=== PATIENT | female | born 1975 | race Caucasian/White ===

== ENCOUNTER 2023-04-28 08:07 | Observation (INO) | payer BC, SELFPAY ==
[2023-04-28] VITALS (7 sets, daily range): BP systolic 119–164; BP diastolic 62–99; PULSE 73–85; RESP 16–20; TEMP 35.9–37.1; O2SAT 92–100; BMI 45.9
--- NOTE | ~2023-04-28 | CT_ITS ---
EXAMINATION: CT abdomen pelvis w con INDICATION: Abdominal pain and nausea TECHNIQUE: Computed tomographic images of the abdomen and pelvis were obtained after the administrati on of 100 cc of Omnipaque 350 intravenous contrast. The dose-length product (DLP) was 1652.70 mGy-cm. Automated exposure control and iterative reconstruction technique were employed. COMPARISON: None available FINDINGS: Minimal dependent atelectasis is present in the lung bases. The heart size is normal. There is wall thickening of the gallbladder with pericholecystic inflammatory change. The liver, spleen, p ancreas, and adrenal glands are normal. No pathologically enlarged abdominal or pelvic lymph nodes ar e identified. No free intraperitoneal gas or evidence of bowel obstruction. There is an umbilical her amado containing fat. There is mild lumbar spondylosis. IMPRESSION: 1. CT findings consistent with acute cholecystitis. Reviewed, dictated and finalized at location F.
--- NOTE | ~2023-04-28 | US_ITS ---
EXAMINATION: US right upper quadrant DATE: 04/28/2023 10:22 INDICATION: Right upper quadrant abdominal pain TECHNIQUE: Multiple grayscale and Doppler ultrasound images of the abdomen were obtained. COMPARISON: None FINDINGS: The pancreatic head and body are normal in appearance including a normal caliber 2 mm main pancreatic duct at the pancreatic body. The pancreatic tail is not visualized. Visualized proximal to mid infe rior vena cava is normal. Liver has normal contour, with a smooth surface. There is increased parench ymal echogenicity and coarsened echotexture consistent with diffuse hepatic steatosis with focal more hypoechoic sparing along the gallbladder fossa. No liver lesion identified. No intrahepatic biliary duct dilation suspected. Portal venous flow was seen in the hepatopetal, normal direction and has no rmal Doppler waveform. The gallbladder is normal in appearance with small phrygian cap at the fundus. There is some dependently layering hypoechoic sludge in the gallbladder but no shadowing cholelithia sis. The common bile duct measures 6-7 mm, which is normal mildly dilated. There is a trace amount of nonspecific pericholecystic fluid. Sonographic Nieto sign was reported as negative by the sonograph er although patient is reportedly taking analgesics which decreases sensitivity. IMPRESSION: 1. Trace amount of nonspecific pericholecystic fluid which is of indeterminate etiology or significan ce. No evident cholelithiasis or sonographic Nieto sign to more specifically suggest acute cholecyst itis although patient was taking analgesics which decreases sensitivity. If there is continued clinic al concern for acute cholecystitis, consider HIDA scan for further evaluation. 2. Diffuse hepatic steatosis. Reviewed, dictated and finalized at location A. IMPRESSION: 1. Trace amount of nonspecific pericholecystic fluid which is of indeterminate etiology or significance. No evident cholelithiasis or sonographic Nieto sign to more specifically suggest acute cholecystitis although patient was taking an algesics which decreases sensitivity. If there is continued clinical concern fo r acute cholecystitis, consider HIDA scan for further evaluation. 2. Diffuse hepatic steatosis.
[2023-04-28 09:04] LABS: Basophils Absolute Auto 0.1 K/mm3 (0.0-0.1); Basophils Percent Auto 0.6 % (0.2-1.2); Eosinophils Absolute Auto 0.2 K/mm3 (0-0.3); Eosinophils Percent Auto 1.9 % (0-4.4); Hematocrit 45.8 % (37.0-47.0); Hemoglobin 14.5 g/dL (12.0-15.0); Immature Granulocyte Absolute 0.29 K/mm3 (0.00-0.031); Immature Granulocyte Percent A 2.3 % (0-0.5); Lymphocytes Absolute Auto 2.22 K/mm3 (0.9-3.2); Lymphocytes Percent Auto 17.7 % (18.3-44.2); Mean Corpuscular HGB Conc 31.7 g/dl (32-36); Mean Corpuscular Volume 94.8 fl (80-100); Mean Platelet Volume 9.7 fl (7.4-10.4); Monocytes Absolute Auto 0.5 K/mm3 (0.1-0.6); Monocytes Percent Auto 4.2 % (2.6-8.5); Neutrophils Absolute Auto 9.2 K/mm3 (1.3-6.7); Neutrophils Percent Auto 73.3 % (45.5-73.1); Platelet Count Result 346 k/mm3 (150-375); Red Blood Count 4.83 M/mm3 (4.2-5.4); White Blood Count 12.6 K/mm3 (4.5-10.0)
[2023-04-28 09:13] LABS: Alanine Aminotransferase 395 U/L (6-35); Albumin Level 3.9 g/dL (3.5-5.1); Alkaline Phosphatase 267 U/L (38-126); Anion Gap 6 mmol/L (8-16); Aspartate Amino Transferase 394 U/L (14-36); Bilirubin,Total 2.3 mg/dL (0.2-1.3); Blood Urea Nitrogen 10 mg/dL (7-17); Calcium 9.1 mg/dL (8.4-10.2); Carbon Dioxide 33 mmol/L (22-30); Chloride 98 mmol/L (98-107); Estimated CRCL calculation 122 ml/min; Estimated Glomerular Filt Rate > 60; Glucose 163 mg/dL (65-110); Lipase 234 U/L (23-300); Potassium 3.2 mmol/L (3.4-5.0); Sodium 137 mmol/L (137-145)
[2023-04-28 09:37] LABS: Atypical Lymphocytes Present; Platelet Estimate Adequate (Adequate); Schistocytes None Seen (NORMAL)
[2023-04-28] MEDS: SODIUM CHLORIDE 0.9% IV 1,000 ML 999 ML IV CONT (09:46)
[2023-04-28] MEDS: FAMOTIDINE 20 MG/2 ML VIAL IV PUSH (09:47)
[2023-04-28] MEDS: ONDANSETRON INJ 4 MG/2 ML VIAL IV PUSH ×2 (09:47→14:36)
[2023-04-28] MEDS: MORPHINE SULFATE (*CRX) 4 MG/ML INJ IV PUSH ×2 (09:47→14:36)
--- NOTE | 2023-04-28 09:48 | ED.GENADULT ---
HPI - General Adult General Chief complaint: Abdominal Pain Stated complaint: abd pain Time Seen by Provider: 04/28/23 08:54 History of Present Illness HPI narrative: Montse Britton is a 47 y/o female who presents of not feeling well with abdominal pain. She states that she had an episode of abdominal pain after eating her lunch too fast last (8 days ago) which caused her to go home from work and she had nausea/vomiting/ abdominal pain through Monday. She states that she started to feel somewhat better up until today when she started to have nausea vomiting again. She states her last BM was yesterday but states she noticed her stool to be pale, she also has noticed a foul odor and darker urine the past few days. She last kept food down yesterday. Related Data Allergies Allergy/AdvReac Type Severity Reaction Status Date / Time No Known Allergies Allergy Verified 04/28/23 08:09 Review of Systems Review of Systems: CONSTITUTIONAL: Denies fever, chills, or sweats. EYES: Denies visual changes, redness, or discharge. ENT: Denies rhinorrhea, congestion, sore throat, or otalgia. CARDIOVASCULAR: Denies chest pain, palpitations, or edema. RESPIRATORY: Denies cough or dyspnea. GASTROINTESTINAL: Reports right upper to mid abdominal pain with nausea /vomiting that happened about a week ago for 3 days and then now nausea/vomiting / pain returned. GENITOURINARY: Denies dysuria or hematuria. SKIN: Denies rash or itching. MUSCULOSKELETAL: Denies back pain, joint pain, or myalgia. NEUROLOGIC: Denies headache, numbness, dizziness, or weakness. PSYCHIATRIC: Denies anxiety or depression. PMFSH Family History Family History Father Family history of diabetes mellitus in first degree relative Family history of malignant neoplasm of kidney Mother Family history of diabetes mellitus in first degree relative Family history of malignant neoplasm of breast in first degree relative Grandparent Family history of malignant neoplasm of breast Social History Social History Alcohol intake: current Exam Narrative: GENERAL: Well-appearing, well-nourished, and in no acute distress. HEAD: Normocephalic, atraumatic. EYES: PERRLA and EOMI. ENT: Nares clear, no rhinorrhea or epistaxis. Mucous membranes moist. Oropharynx without tonsillar hypertrophy exudate or other lesions. NECK: Supple. No adenopathy or masses. No carotid bruits or JVD CHEST: Clear to auscultation. No respiratory distress. No wheezes rales or rhonchi HEART: Regular rate and rhythm. No murmur heard. Normal peripheral pulses. ABDOMEN: Pain noted to the RUQ with palpation that is also to the mid upper abdomen , vomiting on arrival EXTREMITIES: Normal range of motion. No edema. SKIN: Warm, dry, no rash. NEURO: No focal deficits. Alert and oriented x3. PSYCH: Normal mood and affect. Course Vital Signs Vital signs: Vital Signs Temperature 36.3 C L 04/28/23 08:12 Pulse Rate 73 04/28/23 08:12 Respiratory Rate 16 04/28/23 08:12 Blood Pressure 128/78 04/28/23 08:12 Pulse Oximetry 96 04/28/23 08:12 Oxygen Delivery Room Air 04/28/23 08:12 Temperature 36.3 C L 04/28/23 08:12 Pulse Rate 85 04/28/23 11:38 Respiratory Rate 20 04/28/23 11:38 Blood Pressure 164/99 H 04/28/23 11:38 Pulse Oximetry 100 04/28/23 11:38 Oxygen Delivery Room Air 04/28/23 08:12 Medical Decision Making MDM Narrative Medical decision making narrative: On exam pt appears uncomfortable holding her abdomen, no lower abdominal pain with palpation / Pain noted to the RUQ no pain to the LUQ Patient reports of this colicky pain to the RUQ that was about a week ago with Nausea vomiting lasted about 3 days- improved and returned worse today Patient feels that she might of had a fever with feeling hot/cold over the past week Reports pale
--- NOTE | 2023-04-28 10:41 | PC.NURSE ---
pt sleeping on stretcher. no distress noted.
[2023-04-28 11:56] LABS: Appearance Urine Turbid (Clear); Bacteria Urine 4+ /hpf; Bilirubin Urine 3+ (Negative); Blood Urine 3+ (Negative); Color Urine Dark Yellow (Yellow); Glucose Urine UA Negative (Negative); Ketones Urine Negative (Negative); Leukocyte Esterase Ur 2+ LEU/UL (Negative); Need Manual Microscopic Reviewed; Nitrate Urine Positive (Negative); Protein Urine 1+ mg/dL (Negative); RBC Urine 21-50 /hpf (0-2); Specific Grav Ur 1.022 (1.001-1.035); Squamous Epithelial Cell Urine Moderate /hpf (Few); WBC Urine 51-100 /hpf; pH Urine 5.5 (5.0-9.0)
[2023-04-28 12:06] LABS: Add Urine Microscopic? YES
[2023-04-28] MEDS: SODIUM CHLORIDE 0.9% IV 1,000 ML 150 ML IV CONT (14:35)
[2023-04-28] MEDS: PIPERACILLIN/TAZ 4.5G/NS 100ML 4.5 GM/100 ML BAG IVPB (15:27)
--- NOTE | 2023-04-28 16:18 | WPDCN ---
Assessment and Plan Assessment and plan (1) UTI (urinary tract infection): Code(s): N39.0 - Urinary tract infection, site not specified Status: Acute Assessment and Plan: Patient urinalysis is highly suggestive of urinary tract infection. Patient also a foul smell urine. She is being admitted to the hospital and being treated with IV antibiotics for her urinary tract infection. (2) Elevated LFTs: Code(s): R79.89 - Other specified abnormal findings of blood chemistry Status: Acute Assessment and Plan: Patient is morbidly obese. She also has a history of prior alcohol use on a heavy basis. Her elevations in liver enzymes could be due to cirrhosis or fatty liver disease. Also could be due to the fact she could have acute cholecystitis. For now which is follow the trend in her LFTs. (3) Acute cholecystitis: Code(s): K81.0 - Acute cholecystitis Status: Acute Assessment and Plan: Findings on CT scan abdomen pelvis and ultrasound are suggestive of possible acute cholecystitis. Liver enzymes are mildly elevated as well which could be due to acute cholecystitis. No gallstones are seen on the ultrasound or CT scan but she may have some sludge. Her pain is in the right upper quadrant. Blood cell count is slightly elevated at 12,000 thousand. At this point IV antibiotics and relative bowel rest is indicated. I would not get a HIDA scan at this point as I do not think it will add much to the decision making on her need for cholecystectomy at some point. If she improves and is discharged from the hospital without getting a cholecystectomy then further outpatient workup with HIDA scan may be indicated. For now she has no acute surgical abdomen. Continue IV antibiotics. Will follow. [facility] Data of Consult Date/Time: 04/28/23 16:18 Primary Care Provider: HEMATOLOGY NURSE PHYSICIAN Consult Narrative Reason for consult: Elevated liver enzymes, right upper quadrant pain, cholecystitis Narrative: Montse Britton is a 47 year old female He presented to the emergency room the 2nd episode of severe right upper quadrant abdominal pain. Last weekend she also had pain the right upper quadrant and thought she had some food poisoning. Prior to that time she has not had any symptoms of for nausea in the upper abdomen after eating. She also complains of having dark foul-smelling urine. Workup in the emergency room with an abdominal ultrasound showed quad possible acute cholecystitis with a small amount of pericholecystic fluid. No gallstones were seen. CT scan abdomen pelvis was then performed showing thickening of the gallbladder wall changes suggestive of acute cholecystitis. Liver enzymes were mildly elevated. Total bilirubin is around 2. Patient is morbidly obese and states she had a prior history of alcohol use heavily. It is unknown whether she has a history of steatohepatitis or alcoholic cirrhosis as a reason for her elevated liver enzymes. They certainly could be elevated she has acute cholecystitis. She is being admitted to the hospital service started IV access for presumed acute cholecystitis and urinary tract infection. Patient has a bladder sling in place and her urine was I suggestive of urinary tract infection. Her only previous abdominal surgery includes a partial hysterectomy and bladder sling. White blood cell count is slightly elevated at 12,000 thousand. Review of Systems Review of Systems: The remainder of the review of systems to include constitutional, HEENT, cardiovascular, respiratory, GI, , integumentary, musculoskeletal, endocrine, immunologic, hematologic, psychiatric, and neurologic are all negative except for which is mentioned above in the HPI. [facility] Family History Family History Father Family history of diabetes mellitus in first degree relative Family history of malignant neoplasm of kidney Mother
--- NOTE | 2023-04-28 23:27 | PM.IMHP ---
H&P: HPI History of Present Illness Date/Time: 04/28/23 23:27 Chief Complaint: ABDOMINAL PAIN Narrative: THIS IS A 47-YEAR-OLD FEMALE WITH PAST MEDICAL HISTORY SIGNIFICANT FOR MORBID OBESITY, ASTHMA/COPD/EMPHYSEMA 40 PACK YEAR SMOKING HISTORY PATIENT SMOKES 1 PACK OF CIGARETTES DAILY. PRESENTS TO THE EMERGENCY ROOM DUE TO ABOUT A WEEK OR SO OF RIGHT UPPER QUADRANT PAIN EPIGASTRIC PAIN NAUSEA VOMITING POOR APPETITE, CHILLS, FEVERS, NIGHT SWEATS. CHEMISTRY PANEL WAS SIGNIFICANT FOR A POTASSIUM OF 3.3 BICARB 30 ALT AST ALK PHOS 394/395/267 TOTAL BILI WAS 2.3 URINALYSIS WAS SIGNIFICANT FOR NUMEROUS WBCS PRESENT A CT OF ABDOMEN AND PELVIS WAS REPORTED : EXAMINATION: CT abdomen pelvis w con INDICATION: Abdominal pain and nausea TECHNIQUE: Computed tomographic images of the abdomen and pelvis were obtained after the administration of 100 cc of Omnipaque 350 intravenous contrast. The dose-length product (DLP) was 1652.70 mGy-cm. Automated exposure control and iterative reconstruction technique were employed. COMPARISON: None available FINDINGS: Minimal dependent atelectasis is present in the lung bases. The heart size is normal. There is wall thickening of the gallbladder with pericholecystic inflammatory change. The liver, spleen, pancreas, and adrenal glands are normal. No pathologically enlarged abdominal or pelvic lymph nodes are identified. No free intraperitoneal gas or evidence of bowel obstruction. There is an umbilical hernia containing fat. There is mild lumbar spondylosis. IMPRESSION: 1. CT findings consistent with acute cholecystitis. EXAMINATION: US right upper quadrant DATE:? 04/28/2023 10:22 INDICATION: Right upper quadrant abdominal pain TECHNIQUE: Multiple grayscale and Doppler ultrasound images of the abdomen were obtained. COMPARISON: None FINDINGS: The pancreatic head and body are normal in appearance including a normal caliber 2 mm main pancreatic duct at the pancreatic body.? The pancreatic tail is not visualized. Visualized proximal to mid inferior vena cava is normal. Liver has normal contour, with a smooth surface. There is increased parenchymal echogenicity and coarsened echotexture consistent with diffuse hepatic steatosis with focal more hypoechoic sparing along the gallbladder fossa. No liver lesion identified.? No intrahepatic biliary duct dilation suspected. Portal venous flow was seen in the hepatopetal, normal direction and has normal Doppler waveform. The gallbladder is normal in appearance with small phrygian cap at the fundus. There is some dependently layering hypoechoic sludge in the gallbladder but no shadowing cholelithiasis. The common bile duct measures 6-7 mm, which is normal mildly dilated. There is a trace amount of nonspecific pericholecystic fluid. Sonographic Nieto sign was reported as negative by the process control engineer although patient is reportedly taking analgesics which decreases sensitivity. IMPRESSION: 1. Trace amount of nonspecific pericholecystic fluid which is of indeterminate etiology or significance. No evident cholelithiasis or sonographic Nieto sign to more specifically suggest acute cholecystitis although patient was taking analgesics which decreases sensitivity. If there is continued clinical concern for acute cholecystitis, consider HIDA scan for further evaluation. 2. Diffuse hepatic steatosis. PATIENT HAS BEEN ADMITTED FOR FURTHER EVALUATION MANAGEMENT AND TREATMENT Review of Systems Review of Systems: EPIGASTRIC PAIN RIGHT UPPER QUADRANT PAIN NAUSEA VOMITING POOR APPETITE POOR PER ORALLY INTAKE CHILLS NIGHT SWEATS Constitutional: Constitutional: Reports chills, Reports fever(s), Reports night sweats and Reports poor appetite Eyes: Eyes: Denies change in vision ENT: Denies dysphagia and Denies odynophagia Cardiovascular: Cardiovascular: Denies chest pain, Denies radiating jaw, neck or arm pain and Denies palpitations Respiratory: Respiratory: Denies change in phleg
[2023-04-29] MEDS: PIPERACILLN/TAZ 3.375GM/NS50ML 3.375 GM/50 ML BAG IVPB ×2 (03:30→09:10)
[2023-04-29 04:27] VITALS: BP 120/57; PULSE 87; RESP 20; TEMP 36.1; O2SAT 94
--- NOTE | 2023-04-29 07:11 | PM.IMPN ---
Progress Note: A&P Assessment and Plan (1) Acute cholecystitis: Code(s): K81.0 - Acute cholecystitis Status: Acute Assessment and Plan: See below 2. (2) Abdominal pain: Code(s): R10.9 - Unspecified abdominal pain Status: Acute Assessment and Plan: Abdominal pain x1 week CT scan shows acute cholecystitis Right upper quadrant ultrasound reviewed and recommends HIDA scan HIDA scan ordered General surgery consulted P.r.n. morphine for abdominal pain as well as Holden and Tylenol On Zosyn for acute cholecystitis (3) Nausea and vomiting: Code(s): R11.2 - Nausea with vomiting, unspecified Status: Acute Assessment and Plan: Suspect related to acute cholecystitis NPO IV fluids with normal saline at 100 mils an hour P.r.n. Zofran for nausea (4) UTI (urinary tract infection): Code(s): N39.0 - Urinary tract infection, site not specified Status: Acute Assessment and Plan: UA significant for UTI Covering with Zosyn Urine cultures pending (5) Elevated LFTs: Code(s): R79.89 - Other specified abnormal findings of blood chemistry Status: Acute Assessment and Plan: Suspect related to 1. T bili 2.3, AST 394, ALT 395, alk-phos 267 Daily liver enzymes (6) Morbid obesity with BMI of 40.0-44.9, adult: Code(s): E66.01 - Morbid (severe) obesity due to excess calories; Z68.41 - Body mass index [BMI] 40.0-44.9, adult Status: Acute Assessment and Plan: Recommend-lifestyle and diet modifications. BMI is 45.9 141.1 kg (7) Tobacco dependence: Code(s): F17.200 - Nicotine dependence, unspecified, uncomplicated Status: Acute Assessment and Plan: Daily smoker 1 pack per day for the last 40 years Smoking cessation counseling Nicotine patch ordered Plan Feeding: NPO Analgesia: Morphine, Holden, Tylenol Thromboembolic prophylaxis: SCDs Ulcer prophylaxis: Not applicable at this time Glycemic control: Fasting glucose this morning was 163, check hemoglobin A1c Bowel regimen: P.r.n. MiraLax Lines: PIV Antibiotics: Zosyn Disposition: Home Subjective Date/time seen: 04/29/23 07:11 Interval history: This is a 47-year-old female with a past medical history of asthma, COPD, 40 pack year smoking history smoking 1 pack of cigarettes daily, obesity, and anxiety. She presents to the ER with complaints of right upper quadrant pain and epigastric pain with nausea and vomiting as well as poor appetite, chills, fever, night sweats. She states her symptoms have been going on for about a week. Her UA was significant for numerous wbc's and her CT abdomen and pelvis shows findings consistent with acute cholecystitis. 04/29- Objective Data Vital Signs Vital Signs: Vital Signs - 24 hr 04/28/23 08:12 04/28/23 11:38 04/28/23 13:49 Temperature 97.4 F L Pulse Rate 73 85 81 Respiratory Rate 16 20 20 Blood Pressure 128/78 164/99 H 150/98 H Pulse Oximetry 96 100 98 Oxygen Delivery Room Air 04/28/23 16:42 04/28/23 19:00 04/28/23 19:28 Temperature 97.6 F 96.7 F L Pulse Rate 84 73 75 Respiratory Rate 20 16 20 Blood Pressure 121/78 119/62 139/66 Pulse Oximetry 95 92 97 Oxygen Delivery 04/28/23 22:07 04/29/23 04:27 Temperature 98.7 F 97.0 F L Pulse Rate 87 Respiratory Rate 20 Blood Pressure 120/57 L Pulse Oximetry 94 Oxygen Delivery Intake/Output Intake/Output: Intake & Output 04/26/23 04/27/23 04/28/23 04/29/23 23:59 23:59 23:59 23:59 Intake Total 1100 190 Balance 1100 190 Meds/Results Medications: Active Medications Generic Name Dose Route Start Last Admin Trade Name Lopezq PRN Reason Stop Dose Admin Acetaminophen 650 mg 04/28/23 20:20 Acetaminophen 325 Mg Tablet PO Q4H PRN Mild Pain (1-3) or Fever Hydrocodone Bitart/Acetaminophen 1 tab 04/28/23 20:20 Hydrocodone/Acetaminophen (*Crx) 5-325 Mg Tablet PO Q4H PRN Mo
[2023-04-29 08:07] LABS: Basophils Absolute Auto 0.1 K/mm3 (0.0-0.1); Basophils Percent Auto 0.7 % (0.2-1.2); Eosinophils Absolute Auto 0.2 K/mm3 (0-0.3); Eosinophils Percent Auto 1.7 % (0-4.4); Hematocrit 41.7 % (37.0-47.0); Hemoglobin 13.3 g/dL (12.0-15.0); Immature Granulocyte Absolute 0.46 K/mm3 (0.00-0.031); Immature Granulocyte Percent A 4.1 % (0-0.5); Lymphocytes Absolute Auto 2.29 K/mm3 (0.9-3.2); Lymphocytes Percent Auto 20.4 % (18.3-44.2); Mean Corpuscular HGB Conc 31.9 g/dl (32-36); Mean Corpuscular Hemoglobin 30.1 pg (26-34); Mean Corpuscular Volume 94.3 fl (80-100); Monocytes Absolute Auto 0.5 K/mm3 (0.1-0.6); Monocytes Percent Auto 4.4 % (2.6-8.5); Neutrophils Absolute Auto 7.7 K/mm3 (1.3-6.7); Neutrophils Percent Auto 68.7 % (45.5-73.1); Platelet Count Result 331 k/mm3 (150-375); Red Blood Count 4.42 M/mm3 (4.2-5.4); Red Cell Distribution Width 15.3 % (11.5-14.5); White Blood Count 11.3 K/mm3 (4.5-10.0)
[2023-04-29 08:23] LABS: Anion Gap 5 mmol/L (8-16); Blood Urea Nitrogen 8 mg/dL (7-17); Calcium 8.6 mg/dL (8.4-10.2); Carbon Dioxide 33 mmol/L (22-30); Chloride 100 mmol/L (98-107); Estimated CRCL calculation 146 ml/min; Estimated Glomerular Filt Rate > 60; Glucose 118 mg/dL (65-110); Potassium 3.5 mmol/L (3.4-5.0); Sodium 138 mmol/L (137-145)
[2023-04-29] MEDS: SODIUM CHLORIDE 0.9% IV 1,000 ML 100 ML IV CONT (09:10)
[2023-04-29 11:37] LABS: Alanine Aminotransferase 393 U/L (6-35); Albumin Level 3.3 g/dL (3.5-5.1); Alkaline Phosphatase 295 U/L (38-126); Aspartate Amino Transferase 311 U/L (14-36); Bilirubin Direct 1.4 mg/dL (0-0.3); Bilirubin,Total 3.2 mg/dL (0.2-1.3)
--- NOTE | 2023-04-29 11:43 | PM.PNGS ---
Progress Note: A&P Assessment and Plan (1) Acute cholecystitis: Code(s): K81.0 - Acute cholecystitis Status: Acute Assessment and Plan: Acute cholecystitis was likely very mild. She is responded well to IV antibiotics and bowel rest overnight. She no longer has the right upper quadrant pain. I think as long she tolerates low-fat diet she can be discharged home on some oral antibiotics for another week. She can return to the office to see me for follow-up and we can get a HIDA scan if it is indicated for further workup of her gallbladder. Then further discuss any need for cholecystectomy as an outpatient. Subjective Subjective Date/Time Seen: 04/29/23 11:43 Interval history: Patient is feeling much better today. Denies having any right upper quadrant pain. No nausea. Is going to try to eat a low-fat diet today. Exam GI: Other: Abdomen is obese but soft. Noted abdominal distention. She has no tenderness to palpation right upper quadrant today. Exam is benign. Objective Data Vital Signs Vital Signs: Vital Signs - 24 hr 04/28/23 13:49 04/28/23 16:42 04/28/23 19:00 Temperature 36.4 C Pulse Rate 81 84 73 Respiratory Rate 20 20 16 Blood Pressure 150/98 H 121/78 119/62 Pulse Oximetry 98 95 92 Oxygen Delivery 04/28/23 19:28 04/28/23 22:07 04/29/23 04:27 Temperature 35.9 C L 37.1 C 36.1 C L Pulse Rate 75 87 Respiratory Rate 20 20 Blood Pressure 139/66 120/57 L Pulse Oximetry 97 94 Oxygen Delivery 04/29/23 08:00 Temperature Pulse Rate Respiratory Rate Blood Pressure Pulse Oximetry Oxygen Delivery Room Air Intake/Output Intake/Output: Intake & Output 04/26/23 04/27/23 04/28/23 04/29/23 23:59 23:59 23:59 23:59 Intake Total 1100 240 Balance 1100 240 Meds/Results Medications: Active Medications Generic Name Dose Route Start Last Admin Trade Name Freq PRN Reason Stop Dose Admin Acetaminophen 650 mg 04/28/23 20:20 Acetaminophen 325 Mg Tablet PO Q4H PRN Mild Pain (1-3) or Fever Hydrocodone Bitart/Acetaminophen 1 tab 04/28/23 20:20 Hydrocodone/Acetaminophen (*Crx) 5-325 Mg Tablet PO Q4H PRN Moderate Pain (4-6) Albuterol 2 puff 04/29/23 02:59 Albuterol Sulfate (*Sp) Aerosol 1 Puff INHALATION Q6H PRN cough/wheeze Aspirin 81 mg 04/29/23 03:13 Aspirin 81 Mg Chewable Tablet PO DAILY PRN Pain Bupropion HCl 150 mg 04/29/23 09:00 04/29/23 09:11 Bupropion Hcl Sr (12 Hr) 150 Mg Tab PO Not Given Q12HR MELANI Piperacillin/Tazobactam/Dextrose 3.375 gm in 50 mls @ 100 mls/hr 04/29/23 03:00 04/29/23 09:10 Zosyn 3.375 Gm/Ns 50 Ml IVPB 100 mls/hr Q6H MELANI Administration Morphine Sulfate 2 mg 04/28/23 20:20 Morphine Sulfate (*Crx) 2 Mg/Ml Inj IV PUSH Q4H PRN Pain Rated 7-10 Naloxone HCl 0.1 mg 04/28/23 20:20 Naloxone Hcl 0.4 Mg/Ml Vial IV PUSH Q2M PRN Opiate Reversal Nicotine 1 patch 04/29/23 09:00 Nicotine (*Pbkc) 14 Mg Patch TOPICAL DAILY MELANI Ondansetron HCl 4 mg 04/28/23 20:20 Ondansetron Inj 4 Mg/2 Ml Vial IV PUSH Q6H PRN Nausea And Vomiting Polyethylene Glycol 17 gm 04/29/23 07:21 Polyethylene Glycol 3350 17 Gm Powd.Pack PO QAM PRN Constipation Radiology Results: ITS Impressions Upper Quadrant Ultrasound 04/28/23 10:28 IMPRESSION: 1. Trace amount of nonspecific pericholecystic fluid which is of indeterminate etiology or significance. No evident cholelithiasis or sonographic Nieto sign to more specifically suggest acute cholecystitis although patient was taking analgesics which decreases sensitivity. If there is continued clinical concern for acute cholecystitis, consider HIDA scan for further evaluation. 2. Diffuse hepatic steatosis. Abdomen/Pelvis CT 04/28/23 15:15 IMPRESSION: 1. CT findings consistent with acute cholecystitis. Labs Labs: Laboratory Re
--- NOTE | 2023-04-29 11:44 | PM.DS ---
DS: Admitting Diagnosis Discharge Date 04/29 Admitting Diagnosis abdominal pain DS: Summary Hospital Course Hospital Course: This is a 47-year-old female with a past medical history of asthma, COPD, 40 pack year smoking history smoking 1 pack of cigarettes daily, obesity, and anxiety. She presents to the ER with complaints of right upper quadrant pain and epigastric pain with nausea and vomiting as well as poor appetite, chills, fever, night sweats. She states her symptoms have been going on for about a week. Her UA was significant for numerous wbc's and her CT abdomen and pelvis shows findings consistent with acute cholecystitis. 04/29-Patient seen this morning and is no longer having RUQ abdominal pain. Her belly is soft and non-tender to palpation. She is asking to eat and go home today. Discussed case with Dr Fletcher who is agreeable to d/c today. Liver enzymes could be elvated from cholecystitis episode or they could also be related to fatty liver disease vs etoh use. Patient needs to establish PCP which has been referred for her this admission. She needs to follow up Dr Fletcher in 2 weeks time. Status at Discharge Cognitive/behavioral status at discharge: A&Ox4 Time Spent with Patient Time attestation: Total time spent providing and/or coordinating discharge services:42 Exam Narrative: General: well appearing, well developed, well nourished, appears stated age. HEENT: normocephalic, atraumatic. Mucous membranes moist. EOMI, PERRLA, bilateral sclera anicteric, no conjunctival injection. Neck supple without JVD, lymphadenopathy, or bruit. Respiratory: clear to auscultation bilaterally. No rales/rhonic/wheezes. Cardiovascular: Regular rate and rhythm, normal S1-S2 upon auscultation. No murmurs, rubs, or clicks. PMI is nondisplaced, capillary re-fill less than 3 second. Abdomen: Soft, obese, no pulsatile masses, non-distended and non-tender. No rebound, no guarding. No CVA tenderness, no hepatosplenomegaly. Bowel sounds present to all four quadrants. No high pitch or tinkling sounds, resonant to percussion. Extremities: No cyanosis, clubbing, or edema present. Pulses are palpable 2/2. Active ROM to all four extremities. Neuro: Alert and orientated x 4. PERRLA. Cranial nerves 2-12 intact without focal deficit. Skin: Warm, dry, and intact, without rash, erythema, or lesion. slight jaundice present Lines: Incisions: Psych: pleasant, cooperative, normal speech, normal affect, no hallucinations, no dysarthria DS: Data Data Completed and Pending Labs on day of discharge: Labs from last 24 hours 04/29/23 04/28/23 07:02 11:37 WBC 11.3 H RBC 4.42 Hgb 13.3 Hct 41.7 MCV 94.3 MCH 30.1 MCHC 31.9 L RDW 15.3 H Plt Count 331 MPV 10.0 Immature Gran % (Auto) 4.1 H Neut % (Auto) 68.7 Lymph % (Auto) 20.4 [place] % (Auto) 4.4 Eos % (Auto) 1.7 Baso % (Auto) 0.7 Lymph # (Auto) 2.29 [place] # (Auto) 0.5 Eos # (Auto) 0.2 Baso # (Auto) 0.1 Abs Immat Gran (auto) 0.46 H Absolute Neuts (auto) 7.7 H Absolute Nucleated RBC 0.0 Nucleated RBC % 0.0 Sodium 138 Potassium 3.5 Chloride 100 Carbon Dioxide 33 H Anion Gap 5 L BUN 8 Creatinine 0.60 L Estim Creat Clear Calc 146 Estimated GFR > 60 Glucose 118 H Calcium 8.6 Total Bilirubin 3.2 H Direct Bilirubin 1.4 H AST 311 H ALT 393 H Alkaline Phosphatase 295 H Total Protein 7.0 Albumin 3.3 L Urine Color Dark yellow Urine Appearance Turbid H Urine pH 5.5 Ur Specific [place] 1.022 Urine Protein 1+ H Urine Glucose (UA) Negative Urine Ketones Negative Ur Blood (Man) 3+ H Urine Nitrate Positive H Urine Bilirubin 3+ H Urine Urobilinogen 1.0 Add Ur Microanalysis Reviewed Leukocyte Esterase Rfl 2+ H Urine RBC 21-50 H Urine WBC 51-100 H Ur Squamous Epith Cells Moderate Urine Bacteria 4+ Urine Casts 3-5 Discharge Plan Discharge Attending physician on discharge:
== END 2023-04-29 13:40 | disposition home or self-care (01) ==
LOC: ANHED 16:23 → ANH2MED 17:49 → ANH3MEDSUR 05-01 07:57
PROVIDERS: Admitting Provider Internal Medicine; Emergency Provider Nurse Practitioner Family; Visit Provider Internal Medicine
DX: K81.0 Acute cholecystitis (principal); R79.89 Other specified abnormal findings of blood chemistry; K76.0 Fatty (change of) liver, not elsewhere classified; N39.0 Urinary tract infection, site not specified; B96.20 Unspecified Escherichia coli [E. coli] as the cause of diseases classified elsewhere; J45.909 Unspecified asthma, uncomplicated; F41.9 Anxiety disorder, unspecified; E66.01 Morbid (severe) obesity due to excess calories; Z68.42 Body mass index [BMI] 45.0-49.9, adult; F17.210 Nicotine dependence, cigarettes, uncomplicated; F12.90 Cannabis use, unspecified, uncomplicated; F10.90 Alcohol use, unspecified, uncomplicated; Z79.82 Long term (current) use of aspirin; Z79.51 Long term (current) use of inhaled steroids; Z79.899 Other long term (current) drug therapy
CPT/HCPCS: 36415; 74177; 76705; 80048; 80053; 80076; 81001; 81025; 83690; 85025; 87077; 87086; 87186; 96361; 96365; 96375; 96376; 99285; G0378; J2270; J2405; J2543; J7030; Q9967

== ENCOUNTER 2024-03-12 15:14 | Outpatient (CLI) | payer BC, SELFPAY ==
--- NOTE | 2024-03-18 11:34 | WPDHOLTEREM ---
Holter/Event Monitor Holter/Event Monitor Date of procedure: 03/12/24 Holter/Event Procedure: 48 Hr Holter Monitor Indications: Palpitations Conclusion: 1. 48 hour holter monitor on 03/12/24. 2. Predominant rhythm is sinus rhythm. HR range 60-169 bpm; average HR 88 bpm. 3. There are 357 premature supraventricular complexes, 10 supraventricular couplets, and 4 supraventricular trigeminy. There are 3 episodes of atrial tachycardia, fastest at 169 bpm and longest lasting 6 beats. 4. There are 85 premature ventricular complexes and 1 ventricular couplet. No ventricular tachycardia. 5. No sinoatrial or atrioventricular blocks. No significant pauses greater than 2 seconds. 6. Patient reports symptoms of fluttering which demonstrate sinus rhythm, HR range 78-106 bpm.
== END 2024-03-12 15:15 | disposition home or self-care (01) ==
LOC: ANHCARD 15:19
DX: R00.2 Palpitations (principal)
CPT/HCPCS: 93225; 93226